=== PATIENT | male | born 1985 | race Caucasian/White ===

== ENCOUNTER 2024-06-25 04:49 | Emergency (ER) | payer BC ==
[2024-06-25] MEDS ORDERED: Lidocaine 1% PF 5 ML VIAL ONE (05:06)
[2024-06-25] MEDS ORDERED: Bacitracin 1 PK ONE (05:16)
== END 2024-06-25 05:29 | disposition home or self-care (01) ==
LOC: CSHERS 04:49
DX: S61.012A Laceration without foreign body of left thumb without damage to nail, initial encounter (principal); W26.0XXA Contact with knife, initial encounter
CPT/HCPCS: 12001; 99282